=== PATIENT | male | born 2000 | race African-American/Black ===

== ENCOUNTER 2024-07-05 20:45 | Emergency (ER) | payer OTHER, SELFPAY ==
[2024-07-05 20:52] VITALS: BP 119/79; PULSE 78; RESP 18; TEMP 36.6; O2SAT 99
--- NOTE | 2024-07-05 21:15 | ED_ITS ---
HPI - Headache General Time Seen by Provider: 21:15 Date Seen: 07/05/24 Chief Complaint: Headache/Migraine Stated Complaint: headache, rash on leg Time Seen by Provider: 07/05/24 21:15 Source: patient, RN notes reviewed and old records reviewed Mode of arrival: ambulatory Limitations: no limitations History of Present Illness HPI Narrative: 23-year-old male who presents today with headache and rash on the leg. Patient 1st noted the rash on the leg couple of days ago, this on the right thigh. Was painful, no known injury, no insect or tick exposures that he knows of. Was started on Keflex for this and it is now peeling but generally feeling better. Comes in today with frontal headache. Has had a little bit of nasal congestion, mild sore throat, chills but no fever. No chest pain. No nausea, vomiting. No vision changes although photophobia. Does complain of some neck pain. Has not taken anything for this. Works at a daycare. Related Data Home Medications ?Medication ?Instructions ?Recorded ?Confirmed No Known Home Medications 07/05/24 07/05/24 Allergies Allergy/AdvReac Type Severity Reaction Status Date / Time amoxicillin Allergy Verified 07/05/24 20:57 PFSH PFS Social History Smoking Status: Never smoker Do you use any of these nicotine containing products: None Exam Narrative: Exam Narrative: General: Well-developed and well-nourished, no acute distress Head: Atraumatic and normocephalic Eyes: Pupils are equal reactive, extraocular motions intact, conjunctiva clear ENT: External nose and ears are normal, posterior pharynx without erythema or exudate Neck: No midline cervical tenderness, full spontaneous range of motion the neck, trachea midline, no adenopathy Heart: Regular rate and rhythm no murmurs or thrills Lungs: Clear to auscultation bilaterally without wheezes or crackles Abdomen: Soft, nontender, nondistended with active bowel sounds Musculoskeletal: No tenderness, deformity, or edema Neurologic: Awake, alert, and oriented x3, no gross focal neurologic deficits, cranial nerves intact as tested Psych: Mood and affect are appropriate Skin: 14 cm area of hyperpigmentation discoloration of the right hip with central peeling of the superficial skin and normal appearing skin underneath. Smaller 8 cm area in the anterior medial inguinal area on the right which has some mild central peeling. Minimally tender, not warm or indurated Const: Vital Signs, click to edit/add: Vital Signs - 24 hr 07/05/24 20:52 Temperature 97.9 F Pulse Rate [Pulse Oximeter] 78 Respiratory Rate 18 Blood Pressure [Ri ght Upper Arm] 119/79 Pulse Oximetry 99 Oxygen Delivery Me thod Room Air Course Course ED Course: Reviewed prior urgent care visit from July 03 when patient was seen for chills and a rash on his thigh, at that time had congestion, sore throat, and also noted to have a rash on the thigh, patient was given dexamethasone, strep test was performed which was negative and patient was discharged on Keflex for presumed cellulitis. Patient presents today with generalized headache although worse in the front, chills, photophobia. Denies nausea, vomiting, diarrhea, abdominal pain, chest pain. On exam here, finally stable. Awake alert, no nuchal rigidity, no cervical adenopathy. The rash on the right thigh laterally is scaling and the underlying skin appears normal. He has similar area of violaceous discoloration in the medial groin area which he said also is starting peel. Labs ordered along with CT scan, fluids, Toradol. Reevaluation(s) Time of Reevaluation #1: 22:50 Reevaluation #1: Labs ordered in the belly interpreted by me with normal CBC, normal basic panel, negative respiratory panel, normal Monospot. CT scan of the head independently interpreted by me does not demonstrate acute intracranial pathology. Time of Reevaluation #2: 23:31 Reevaluation #2: Patient recheck, he feels better after treatment and is stable for discharge. Vital Signs Vital signs: Initial Vital Signs Temperature 97.9 F 07/05/24 20:52 Temperature Source Temporal Artery Scan 07/05/24 20:52 Pulse Rate 78 07/05/24 20:52 Respiratory Rate 18 07/05/24 20:52 Blood Pressure 119/79 07/05/24 20:52 Blood Pressure Mean 92 07/05/24 20:52 Blood Pressure Position Sitting 07/05/24 20:52 Pulse Oximetry 99 07/05/24 20:52 Oxygen Delivery Method Room Air 07/05/24 20:52 Vital Signs Temperature 97.9 F 07/05/24 20:52 Pulse Rate 78 07/05/24 20:52 Respiratory Rate 18 07/05/24 20:52 Blood Pressure 119/79 07/05/24 20:52 Pulse Oximetry 99 07/05/24 20:52 Oxygen Delivery Method Room Air 07/05/24 20:52 Temperature 97.9 F 07/05/24 20:52 Pulse Rate 78 07/05/24 20:52 Respiratory Rate 18 07/05/24 20:52 Blood Pressure 119/79 07/05/24 20:52 Pulse Oximetry 99 07/05/24 20:52 Oxygen Delivery Method Room Air 07/05/24 20:52 Medications Administered Medications: Discontinued Medications Generic Name Dose Route Start Last Admin Trade Name Freq PRN Reason Stop Dose Admin Diphenhydramine HCl 25 mg 07/05/24 22:57 07/05/24 23:06 Diphenhydramine 50 Mg/Ml Inj IVP 07/05/24 22:58 25 mg ONCE ONE Administration Sodium Chloride 1,000 mls @ 1,000 mls/hr 07/05/24 21:30 07/05/24 23:14 0.9 % Sodium Chloride 1000 Ml IV 07/05/24 22:29 Infused .Q1H KRISHAN Infusion Ketorolac Tromethamine 15 mg 07/05/24 21:23 07/05/24 21:45 Ketorolac 15 Mg/Ml Inj IVP 07/05/24 21:24 15 mg ONCE ONE Administration Prochlorperazine 10 mg 07/05/24 22:57 07/05/24 23:07 Prochlorperazine 5 Mg/Ml Vial IV 07/05/24 22:58 10 mg ONCE ONE Administration MDM - Headache Lab Data Labs: Lab Results 07/05/24 07/05/24 Range/Units 21:02 21:55 WBC 5.61 (4.50-11.00) K/uL RBC 5.00 (4.30-5.90) m/uL Hgb 15.0 (13.5-17.5) gm/dL Hct 44.1 (37.0-53.0) % MCV 88 (80-100) fL MCH 30 (26-34) pg MCHC 34 (32-36) gm/dL RDW Coeff of Jairo 11.4 L (11.5-15.5) % Plt Count 273 (140-440) K/uL Neut % (Auto) 53.4 (42.0-72.0) % Lymph % (Auto) 36.2 (20-44) % [place] % (Auto) 8.6 (0.0-11.0) % Eos % (Auto) 1.4 (0.0-7.0) % Baso % (Auto) 0.2 (0.0-3.0) % Neut # (Auto) 3.00 (1.7-7.0) K/uL Lymph # (Auto) 2.03 (0.90-2.90) K/uL [place] # (Auto) 0.50 (0.00-0.90) K/UL Eos # (Auto) 0.08 (0.00-0.50) K/uL Baso # (Auto) 0.01 (0.00-0.30) K/uL Abs Immat Gran (auto) 0.01 (0.00-0.30) K/uL Imm/Tot Granulo (auto) 0.2 % Sodium 137 (135-149) mmol/L Potassium 3.4 L (3.6-5.1) mmol/L Chloride 100 (96-114) mmol/L Carbon Dioxide 29 (20-32) mmol/L Anion Gap 8 (7-15) mEq/L BUN 12 (5-24) mg/dL Creatinine 1.0 (0.5-1.5) mg/dL Estimated GFR 109 ml/min Glucose 85 (60-115) mg/dL Calcium 8.9 (8.4-10.6) mg/dL SARS-CoV-2 (PCR) Negative SARS-CoV-2 (Negative) Monoscreen Negative (Negative) Influenza Type A (PCR) Negative PCR FLU A (Negative) Influenza Type B (PCR) Negative PCR FLU B (Negative) RSV (PCR) Negative PCR RSV (Negative) Discharge Plan Discharge Clinical Impression: Headache Patient Disposition: Home, Self-Care Condition: Improved Instructions: Acute Headache (DC) Activity Level: Activity as Tolerated Discharge Diet: Regular Prescriptions: No Action No Known Home Medications Follow Up/Referrals: Provider,Not a Local [Primary Care Provider] - Stand Alone Forms: [employer] Info Instructions
[2024-07-05 21:43] LABS: PCR FLU A Negative PCR FLU A (Negative); PCR FLU B Negative PCR FLU B (Negative); PCR RSV Negative PCR RSV (Negative); SARS PCR* Negative SARS-CoV-2 (Negative)
[2024-07-05] MEDS: KETOROLAC 15 MG/ML inj IVP (21:45)
[2024-07-05] MEDS: 0.9 % SODIUM CHLORIDE 1000 ml 1,000 ML IV (21:46)
--- NOTE | 2024-07-05 21:50 | CRLHL7_ITS ---
For Patients: As a result of the Century Cures Act, medical imaging exams and procedure reports are released immediately into your electronic medical record. You may view this report before your referring provider. If you have questions, please contact your health care provider. INDICATION: Headache. TECHNIQUE: Non-contrast CT of the head is submitted. No comparisons. FINDINGS: The ventricles, sulci and gyri are of normal size, shape and contour. Midline structures are centrally located. No convincing evidence of intra- or extra-axial fluid collections. Small retention cyst in the partially visualized maxillary sinus. IMPRESSION: No radiographic evidence of acute intracranial abnormalities. Please note that all CT scans at this facility use dose modulation, iterative reconstruction, and/or weight-based dosing when appropriate to reduce radiation dose to as low as reasonably achievable. Dictated by Segundo Barfield MD @ 07/05/2024 11:13:41 PM (Electronically Signed)
[2024-07-05 22:08] LABS: Mono Screen* Negative (Negative)
[2024-07-05 22:21] LABS: Chloride* 100 mmol/L (96-114); Potassium* 3.4 mmol/L (3.6-5.1); Sodium* 137 mmol/L (135-149)
[2024-07-05 22:24] LABS: Anion Gap 8 mEq/L (7-15); Blood Urea Nitrogen* 12 mg/dL (5-24); Carbon Dioxide* 29 mmol/L (20-32); Estimated Glomerular Filt Rate 109 ml/min
[2024-07-05 22:25] LABS: Calcium* 8.9 mg/dL (8.4-10.6); Glucose* 85 mg/dL (60-115)
[2024-07-05 22:38] LABS: Basophils Absolute Auto 0.01 K/uL (0.00-0.30); Basophils Percent Auto 0.2 % (0.0-3.0); Eosinophils Absolute Auto 0.08 K/uL (0.00-0.50); Eosinophils Percent Auto 1.4 % (0.0-7.0); Hematocrit 44.1 % (37.0-53.0); Immature Granulocytes Abs Auto 0.01 K/uL (0.00-0.30); Immature Granulocytes Pct Auto 0.2 %; Lymphocytes Absolute Auto 2.03 K/uL (0.90-2.90); Lymphocytes Percent Auto 36.2 % (20-44); Mean Corpuscular HGB Conc 34 gm/dL (32-36); Mean Corpuscular Hemoglobin 30 pg (26-34); Mean Corpuscular Volume 88 fL (80-100); Monocytes Percent Auto 8.6 % (0.0-11.0); Neutrophils Percent Auto 53.4 % (42.0-72.0); Platelet Count* 273 K/uL (140-440); RDW Coefficient of Variation % 11.4 % (11.5-15.5); White Blood Count* 5.61 K/uL (4.50-11.00)
[2024-07-05 22:39] LABS: Slide Review Reflex No
--- OUTSIDE RECORDS SUMMARY | 2024-07-05 22:48 | XMS_ITS | Clinical Summary ---
Author Organization [facility] Address [place], [place] [address] Care Team Providers Care Consultant Intern Name Role Phone Pcp, No Primary Care Provider Unavailabl e Allergies Active Allergy Reactions Criticality Noted Date Comments Amoxicillin *Unknown - Childhood Rxn 05/02/2023 Cefdinir *Unknown 09/12/2017 Cerner Notes Reactions:Clostridium Difficile Other reaction(s): Other (see comments) Giulianoner Notes Reactions:Clostridium Difficile Shellfish Derived Anaphylaxis High 05/02/2023 Medications Medication Sig Dispensed Refills Start Date End Date Status cephalexin (KEFLEX) 500 mg capsuleIndications: Cellulitis of skin Take 1 Capsule (500 mg) by mouth two times daily for 7 days. 14 Capsule 07/03/2024 07/10/2024 Active Hospital, Clinic, or Other Facility Administered Medication Ordered Dose Route Frequency Start Date End Date Status dexAMETHasone 10 mg inj for oral, topical or inhalation use (DECADRON)Indications:Sore throat 10 mg Oral ONE TIME 07/03/2024 07/03/2024 Ended Encounters Date Type Department Care Team Description 07/03/2024 1:20 PM CDT Office Visit [facility] [address] [place] [id number] Maude Orr NP Throat Problem 07/03/2024 Travel from Last 3 Months Social History Tobacco Use Types Packs/Day Years Used Date Smoking Tobacco: Never Smokeless Tobacco: Never Tobacco Cessation:Counseling Given: Not Answered Sex and Gender Information Value Date Recorded Sex Assigned at Not on file Gender Identity Not on file Sexual Orientation Not on file Obstetrics History Last Filed Vital Signs Vital Sign Reading Time Taken Comments Blood Pressure 107/69 07/03/2024 2:02 PM CDT Pulse 80 07/03/2024 2:02 PM CDT Temperature 36.9 ??C (98.5 ??F) 07/03/2024 2:02 PM CD T Respiratory Rate 14 07/03/2024 2:02 PM CDT Oxygen Saturation 97% 07/03/2024 2:02 PM CDT Inhaled Oxygen Concentration - - Weight 73.5 kg (162 lb) 07/03/2024 2:02 PM CDT Height 182.9 cm (6') 05/02/2023 8:07 PM CDT Body Mass Index 21.97 05/02/2023 8:07 PM CDT Plan of Treatment Health Maintenance Due Date Last Done Comments Tdap 2012 Depression screening for age 12+ 2013 HIV for age 15-65 2016 HPV series for age 9-26 (1 - Male 3-dose series) 2016 BMI (ht and wt on same day) for age 18+ 2019 Hepatitis C screening for ag e 18-79 2019 Tetanus booster 2021 COVID-19 vaccine series (2022- season) 2024 Influenza for age 9-49 06/24/2024 Pneumococcal series for age 6-64 Aged Out No longer eligible based on patient's age to complete this topic Procedures Procedure Name Priority Date/Time Associated Diagnosis Comments STREP A PCR STAT 07/03/2024 2:03 PM CDT Sore throat THROAT RAPID STREP A WITH REFLEX STAT 07/03/2024 2:03 PM CDT Sore throat from Last 3 Months Results * STREP A PCR (07/03/2024 2:03 PM CDT) GROUP A STREP Negative 07/04/2024 3:43 AM CDT [facility] Throat SPECIMEN FROM THROAT / Unknown Non-Blood / Unknown 07/03/2024 2:03 PM CDT 07/03/2024 2:22 PM CDT Maude Orr NP MICROBIOLOGY [facility] [address] [place] [id number], * THROAT RAPID STREP A WITH REFLEX (07/03/2024 2:03 PM CDT) STREP A ANTIGEN Negative 07/03/2024 2:22 PM CDT [facility] Comment:PCR to follow. Throat SPECIMEN FROM THROAT / Unknown Non-Blood / Unknown 07/03/2024 2:03 PM CDT 07/03/2024 2:09 PM CDT Maude Orr NP MICROBIOLOGY [facility] [address] [place] [address] from Last 3 Months Care Teams Consultant Intern Relationship Specialty Start Date End Date Pcp, No . PCP - General 05/02/23
[2024-07-05] MEDS: diphenhydrAMINE 50 MG/ML inj 25 MG IVP (23:06)
[2024-07-05] MEDS: PROCHLORPERAZINE 5 MG/ML VIAL 10 MG IV (23:07)
[2024-07-05] MEDS: dexAMETHasone 4 MG/ML VIAL 10 MG IV (23:40)
[2024-07-06 00:20] VITALS: BP 123/77; PULSE 86; RESP 14
== END 2024-07-06 00:12 | disposition home or self-care (01) ==
PROVIDERS: Emergency Provider Family Medicine
DX: R51.9 Headache, unspecified (principal)
CPT/HCPCS: 36415; 70450; 80048; 85025; 86308; 87631; 96374; 96375; 99284; J0780; J1100; J1200; J1885; J7030